=== PATIENT | male | born 1975 | race American Indian/Alaskan Native ===

== ENCOUNTER 2020-05-01 14:35 | Emergency (ER) | payer BC ==
[2020-05-01 14:58] VITALS: TEMP 98.3; BMI 26.1
[2020-05-01 20:00] VITALS: BP 115/74; PULSE 91
== END 2020-05-01 20:00 | disposition home or self-care (01) ==
LOC: JER 14:35
DX: U07.1 COVID-19 (principal)
CPT/HCPCS: 71046-TC-FY; 99283-25